=== PATIENT | male | born 1970 | race African-American/Black ===

== ENCOUNTER 2024-12-06 13:14 | Observation (INO) | payer BC, OTHER ==
[2024-12-06] MEDS ORDERED: Iopamidol 300 61% 100 ML VIAL FS ONE (13:48)
[2024-12-06 14:14] LABS: INR-International Normal Ratio 1.0; PTT 27.7 sec (22.0-33.0); Prothrombin Time 11.1 sec (9.5-12.1)
[2024-12-06 14:16] LABS: #Basophils Less than 0.03 10x3/uL (0.0-0.2); #Eosinophils 0.14 10x3/uL (0.0-0.5); #Monocytes 0.53 10x3/uL (0.0-1.1); #Neutrophils 3.00 10x3/uL (1.5-8.4); %Basophils 0.3 % (0.0-2.0); %Eosinophils 2.4 % (0.0-6.0); %Lymphocytes 37.2 % (18.0-47.0); %Monocytes 9.0 % (0.0-10.0); %Neutrophils 50.9 % (40.0-75.0); Hematocrit 47.6 % (38.8-50.0); Hemoglobin 15.6 g/dL (13.5-17.5); Mean Corpuscular Hemoglobin 29.8 pg (27.0-33.0); Mean Corpuscular Volume 91.0 fL (81.2-95.1); Platelet Count 263 10x3/uL (150-450); Red Blood Cell (RBC) Count 5.23 10x6/uL (4.32-5.72); White Blood Cell (WBC) Count 5.89 10x3/uL (3.5-10.5)
[2024-12-06 14:29] LABS: ALT (SGPT) 22 U/L (Less than 45); AST (SGOT) 37 U/L (11-34); Albumin 3.9 g/dL (3.1-4.5); Alkaline Phosphatase 64 U/L (40-110); Anion Gap 15 mmol/L (10-20); BUN (Urea Nitrogen) 9 mg/dL (8.4-25.7); Bilirubin, Total 0.9 mg/dL (0.3-1.2); Calc. Creatinine Clearance 0 mL/min (70-130); Calcium 9.1 mg/dL (7.8-10.44); Carbon Dioxide 20 mmol/L (22-29); Chloride 105 mmol/L (98-107); Globulin 4.4 g/dL (2.4-3.5); Glucose 87 mg/dL (70-105); Sodium 135 mmol/L (136-145)
[2024-12-06 14:36] LABS: Potassium 4.6 mmol/L (3.5-5.1)
[2024-12-07] MEDS ORDERED: Bisacodyl 10 MG SUPP PR PRN (14:40)
[2024-12-07] MEDS ORDERED: Acetaminophen 325 MG TAB PO PRN (14:40)
[2024-12-07] MEDS ORDERED: Ondansetron PF 4 MG/2 ML Vial IVP PRN (14:40)
[2024-12-07] MEDS ORDERED: Senokot S 8.6-50 MG TAB PO PRN (14:40)
[2024-12-07] MEDS ORDERED: Melatonin 3 MG TAB PO PRN (14:40)
[2024-12-07 15:55] LABS: #Basophils Less than 0.03 10x3/uL (0.0-0.2); #Eosinophils 0.05 10x3/uL (0.0-0.5); #Monocytes 0.51 10x3/uL (0.0-1.1); #Neutrophils 3.53 10x3/uL (1.5-8.4); %Basophils 0.4 % (0.0-2.0); %Eosinophils 0.9 % (0.0-6.0); %Lymphocytes 27.4 % (18.0-47.0); %Monocytes 9.0 % (0.0-10.0); %Neutrophils 61.9 % (40.0-75.0); Hematocrit 48.1 % (38.8-50.0); Hemoglobin 15.7 g/dL (13.5-17.5); Mean Corpuscular Hemoglobin 29.8 pg (27.0-33.0); Mean Corpuscular Volume 91.3 fL (81.2-95.1); Platelet Count 296 10x3/uL (150-450); Red Blood Cell (RBC) Count 5.27 10x6/uL (4.32-5.72); White Blood Cell (WBC) Count 5.69 10x3/uL (3.5-10.5)
[2024-12-07 16:06] LABS: Anion Gap 8 mmol/L (10-20); BUN (Urea Nitrogen) 10 mg/dL (8.4-25.7); Calc. Creatinine Clearance 0 mL/min (70-130); Calcium 8.9 mg/dL (7.8-10.44); Carbon Dioxide 28 mmol/L (22-29); Chloride 106 mmol/L (98-107); Glucose 101 mg/dL (70-105); Potassium 4.2 mmol/L (3.5-5.1); Sodium 138 mmol/L (136-145)
[2024-12-07 16:42] VITALS: BMI 23.7
[2024-12-07] MEDS ORDERED: Electrolyte Replacement Protocol 1 EACH FS PRN (17:45)
[2024-12-07] MEDS: Folic Acid 1 MG TAB PO SCH (18:07)
[2024-12-07] MEDS: Multivit, Therapeutic 1 TAB PO SCH (18:07)
[2024-12-08 04:05] LABS: Hematocrit 45.0 % (38.8-50.0); Hemoglobin 14.8 g/dL (13.5-17.5); Mean Corpuscular Hemoglobin 29.8 pg (27.0-33.0); Mean Corpuscular Volume 90.5 fL (81.2-95.1); Platelet Count 287 10x3/uL (150-450); Red Blood Cell (RBC) Count 4.97 10x6/uL (4.32-5.72); White Blood Cell (WBC) Count 6.44 10x3/uL (3.5-10.5)
[2024-12-08 04:25] LABS: Chloride 106 mmol/L (98-107); Glucose 116 mg/dL (70-105)
[2024-12-08 04:41] LABS: Thyroid Stimulating Hormone 1.8005 uIU/mL (0.35-4.94)
[2024-12-08 04:49] LABS: MDiff Complete? YES; Platelet Adequacy Comment Appears Adequate; RBC Morphology Within Normal Limits
[2024-12-08 06:31] LABS: Anion Gap 14 mmol/L (10-20); BUN (Urea Nitrogen) 11 mg/dL (8.4-25.7); Calc. Creatinine Clearance 108 mL/min (70-130); Calcium 8.3 mg/dL (7.8-10.44); Carbon Dioxide 20 mmol/L (22-29); Cardiac Risk 2.9 (Less than 4.5); Cholesterol 174 mg/dl (< 200 Desired); HDL Cholesterol 60 mg/dL (>60 Neg Risk); LDL Cholesterol, Calculated 102 mg/dL; Magnesium 1.8 mg/dL (1.6-2.6); Potassium 4.0 mmol/L (3.5-5.1); Sodium 136 mmol/L (136-145); Triglycerides 60 mg/dL (Less than 150)
[2024-12-08] MEDS: Magnesium 2 GM/50 ML(in water) 2 GM in Premix 1 BAG IVPB SCH (08:50)
[2024-12-08] MEDS: Multivit, Therapeutic 1 TAB PO SCH (08:51)
[2024-12-08] MEDS: Folic Acid 1 MG TAB PO SCH (08:51)
[2024-12-08 13:53] LABS: Vitamin B12 419.0 pg/mL (211-911)
[2024-12-08 16:36] VITALS: BP 125/80; TEMP 97.6
[2024-12-09] MEDS ORDERED: Aspirin 81 mg Enteric Coated Tablet PO SCH (09:00)
[2024-12-10] MEDS ORDERED: Thiamine 100 MG TAB PO SCH (21:00)
== END 2024-12-08 16:45 | disposition home or self-care (01) ==
LOC: CSHERS 13:14 → CSHTELE 12-07 14:37
PROVIDERS: ADMIT Internal Medicine; ATTEND Physician Assistant
DX: H53.8 Other visual disturbances (principal); F10.10 Alcohol abuse, uncomplicated; E78.5 Hyperlipidemia, unspecified; Z79.899 Other long term (current) drug therapy
CPT/HCPCS: 36415; 36416; 70450; 70496; 70498; 70553; 80048; 80053; 80061; 82607; 83036; 83735; 84100; 84443; 85025; 85610; 85730; 93005; 93306; 94760; 96374; 96375; G0378; J3411; J3475; Q9967